=== PATIENT | male | born 1965 | race Caucasian/White ===

== ENCOUNTER 2018-02-09 06:01 | Day surgery (SDC) | payer OTHER, SELFPAY ==
--- NOTE | 2018-02-09 06:14 | EKG12_ITS ---
Test Reason : PRE-OP Blood Pressure : / mmHG Vent. Rate : 058 BPM Atrial Rate : 058 BPM P-R Int : 180 ms QRS Dur : 084 ms QT Int : 398 ms P-R-T Axes : 035 031 015 degrees QTc Int : 390 ms Sinus bradycardia Nonspecific ST abnormality Abnormal ECG No previous ECGs available Confirmed by VIVIENNE TOVAR, HERBERT ([id number]), graphics editor CHOCO SANTANA ([id number]) on 02/14/2018 1:09:23 PM Referred By: Sofia Victoria Confirmed By:HERBERT PALAFOX MD
[2018-02-09 06:27] VITALS: BP 136/81; PULSE 60; RESP 16; TEMP 36.8; O2SAT 96; BMI 29.9
[2018-02-09] MEDS: Cefazolin 2 GM in 0.9% Normal Saline 100 ML IV (07:34)
--- NOTE | 2018-02-09 07:38 | OP.PN_ITS ---
Immediate Post-Op Note Date of Procedure: 02/09/18 Primary Surgeon/Physician: Sofia Victoria physician office specialist: NOT,DEFINED Pre-Operative Diagnosis: umbilical hernia Post-Operative Diagnosis: same Surgery/Procedure Performed:: umbilical hernia repair Description of Surgical Findings:: small umbilical hernia 1.5 cm diameter Estimated Blood Loss: < 2 ml Specimen's removed: none Type of Anesthesia:: Local MAC ASA Class: ASA2 Mod Systematic Disease - Admit VTE Documentation VTE Present on Admission: Yes VTE Mechan Device Prophylaxis: SCD's
--- NOTE | 2018-02-09 07:38 | PCM.DC.HER ---
Discharge Diet: No Restrictions Discharge Activity: Return to Normal Activity, May not drive while taking narcotic pain medications. Lifting Restrictions: no lifting greater than 20 pounds for a month Call your doctor if your incision/area has: Continuous Slow Oozing, Foul Smelling Discharge Call your doctor if you observe: Fever of 101 or Higher Additional Dressing/Incision Instructions:: Leave dressing in place. May get wet in shower. Do not soak - no tub bath/swimming. may apply ice packs to area Allergies/Adverse Reactions: Allergies No Known Allergies Allergy (Verified 02/06/18 08:16) Medications to take at Discharge Stelara .EVERY 3 MONTHS 02/06/18 Hydrocodone Bitart/Apap 5-325 [[place] 5MG-325MG] 1 tab PO Q6H PRN PRN 5 Days #10 tab 02/09/18 The following prescriptions were given: Hydrocodone Bitart/Apap 5-325 [[place] 5MG-325MG] 1 tab PO Q6H PRN PRN 5 Days #10 tab PRN Reason: Pain Primary Care Physician: Torin Monahan MD [Primary Care Provider] - Test Results: Please Follow Up With: Sofia Victoria MD - call When: to be seen in 10-14 days, please call for date and time, thank you
[2018-02-09] MEDS: Bupivacaine 0.25% 30 ML Vial (08:10)
--- NOTE | 2018-02-09 08:13 | PCM.OPRPT ---
Report of Operation Date of Procedure: 02/09/18 Pre-Operative Diagnosis: umbilical hernia Post-Operative Diagnosis: same Surgery/Procedure Performed:: umbilical hernia repair Description of Surgical Findings:: small umbilical hernia 1.5 cm diameter clinical transformation specialist: NOT,DEFINED Type of Anesthesia:: Local MAC Anesthesiologist: Ezequiel Angulo Specimen's removed: none Estimated Blood Loss (mL): < 2 ml Fluids Replaced: 600 ml RL Description of Procedure: After informed consent was obtained, the patient was brought to the Operating Room and placed in the supine position. Appropriate time out protocol was followed. The patient was then placed under anesthesia. The abdomen was then prepped with a sterile surgical skin preparation. Sterile surgical drapes were placed. This skin and subcutaneous tissues were then widely infiltrated with the local anesthetic. A skin incision was then made with a 15 blade scalpel inferior to the umbilical dimple in a transverse curvilinear fashion and carried down to the subcutaneous tissues using sharp dissection. Any hemorrhage was adequately controlled with electrocautery. Blunt dissection was done to separate the subcutaneous tissues from the umbilical hernia sac. The sac once freed of the subcutaneous tissues was then freed from the undersurface of the dermis of the umbilical skin. This was done in a fashion to avoid injury to the umbilical skin. The sac was then freed up from the fascial surface. The fascial defect was then properly outlined. The fascial defect was 1.5 cm. The fascial defect was then closed transversely with interrupted 0 prolene suture. Hemostasis was controlled with electrocautery. The subdermis was reapproximated with interrupted 3-0 vicryl sutures. The skin incision was reapproximated with a running 4-0 Monocryl suture. Cavilon and steristrips were placed to reinforce the skin closure and a sterile opsite dressing was applied. The patient was brought from to the Recovery Room in stable condition. - Complications none noted - Admit VTE Documentation VTE Present on Admission: Yes VTE Mechan Device Prophylaxis: SCD's
[2018-02-09 08:22] VITALS: BP 111/73; BP 136/81; PULSE 53; RESP 16; TEMP 36.5; O2SAT 95
[2018-02-09 08:25] VITALS: BP 102/79; BP 136/81; PULSE 55; RESP 16; O2SAT 95
[2018-02-09 08:30] VITALS: BP 117/79; BP 136/81; PULSE 51; RESP 18; O2SAT 96
[2018-02-09 08:35] VITALS: BP 116/76; BP 136/81; PULSE 52; RESP 18; TEMP 36.5; O2SAT 97
[2018-02-09] MEDS: HYDROcodone Bitartrate/Apap 5/325 Tablet PO (09:10)
[2018-02-09 09:45] VITALS: BP 136/81
== END 2018-02-09 09:45 | disposition home or self-care (01) ==
LOC: SDC 06:02 → AC 06:03
PROVIDERS: Family Provider Family Medicine; PCP Family Medicine; Visit Provider Surgery
PROC: (CPT 49585; principal; 2018-02-09 07:15)
DX: K42.9 Umbilical hernia without obstruction or gangrene (principal); Z79.899 Other long term (current) drug therapy
CPT/HCPCS: 49585; 93005; J7120